=== PATIENT | female | born 1965 | race African-American/Black ===

== ENCOUNTER 2018-10-02 19:39 | Emergency (ER) | payer OTHER ==
[2018-10-02] MEDS ORDERED: IBUPROFEN 600 MG TABLET PO ONE (23:50)
[2018-10-03 00:15] LABS: APPEARANCE,URINE CLEAR; BILIRUBIN,URINE NEGATIVE (NEGATIVE); COLOR,URINE YELLOW; GLUCOSE, URINE NEGATIVE (NEGATIVE); KETONES,URINE NEGATIVE (NEGATIVE); LEUKOCYTE ESTERASE,URINE NEGATIVE (NEGATIVE); NITRITE,URINE NEGATIVE (NEGATIVE); PROTEIN,URINE NEGATIVE (NEGATIVE); URINE SPECIFIC GRAVITY 1.018; UROBILINOGEN,URINE NEGATIVE mg/dL (<2.0)
--- NOTE | 2018-10-03 00:24 | RADIOLOGY REPORT (SQ) ---
XR LUMBAR SPINE 3 VIEWS HISTORY: Lower back pain. COMPARISON: None. FINDINGS: 5 non-rib bearing lumbar-type vertebra are present. Normal alignment without static listhesis. Vertebral body heights and disc spaces are preserved. SI joints are intact. IMPRESSION: No acute fracture or listhesis.
--- NOTE | 2018-10-03 00:34 | ER Document Report ---
ED General - General Chief Complaint: Back Pain Stated Complaint: LOWER BACK PAINS, BOTH SIDES Time Seen by Provider: 10/02/18 23:28 Mode of Arrival: Ambulatory Information source: Patient TRAVEL OUTSIDE OF THE [place] IN LAST 30 DAYS: No - HPI Notes: Patient is a 53-year-old black female presents the emergency department with report of a 3-day history of lower back pain equal on both sides, worse with lifting and movement. The patient reports some associated muscle spasms. She denies any numbness, paresthesia, incontinence, dysuria, abdominal pain. No constipation or diarrhea. No cough or congestion or chest pain. The patient performs heavy lifting at work, but has trouble thinking of any one single episode where she may have injured her back. - Related Data Allergies/Adverse Reactions: Sulfa (Sulfonamide Antibiotics) Allergy (Verified 04/26/13 03:25) Past Medical History - General Information source: Patient - Social History Smoking Status: Current Every Day Smoker Chew tobacco use (# tins/day): No Frequency of alcohol use: Rare Drug Abuse: None Family History: CAD, Hyperlipidemia, Hypertension, Malignancy Patient has suicidal ideation: No Patient has homicidal ideation: No Renal/ Medical History: Reports: Hx Ovarian Cysts, Hx Pelvic Inflammatory Disease. Denies: Hx Peritoneal Dialysis Past Surgical History: Reports: Hx Section - Immunizations Immunizations up to date: Yes Review of Systems - Review of Systems -: Yes All other systems reviewed and negative Physical Exam - Vital signs Vitals: Temp Pulse Resp BP Pulse Ox 98.3 F 81 16 133/85 H 100 10/02/18 19:40 10/02/18 19:40 10/02/18 19:40 10/02/18 19:40 10/02/18 19:40 - Notes Notes: PHYSICAL EXAMINATION: GENERAL: Well-appearing, well-nourished and in no acute distress. HEAD: Atraumatic, normocephalic. EYES: Pupils equal round and reactive to light, extraocular movements intact, conjunctiva are normal. ENT: Nares patent, oropharynx clear without exudates. Moist mucous membranes. NECK: Normal range of motion, supple without lymphadenopathy LUNGS: Breath sounds clear to auscultation bilaterally and equal. No wheezes rales or rhonchi. HEART: Regular rate and rhythm without murmurs ABDOMEN: Soft, nontender, nondistended abdomen. No guarding, no rebound. No masses appreciated. Female : deferred Musculoskeletal: Normal range of motion, no pitting or edema. No cyanosis. Patient exhibits pain to the lower midline lumbar region and paraspinally adjacent to L3/4/5 and S1. No bony deformity or crepitance or erythema. The patient has pain in through the paraspinal muscle region below the CVA area. NEUROLOGICAL: Cranial nerves grossly intact. Normal speech, normal gait. Normal sensory, motor exams. No saddle anesthesia. Normal reflexes. PSYCH: Normal mood, normal affect. SKIN: Warm, Dry, normal turgor, no rashes or lesions noted. Course - Re-evaluation Re-evalutation: 10/03/18 00:34 Patient was given ibuprofen for pain. 10/03/18 01:56 Patient had some relief of her discomfort after ibuprofen. The patient had a negative x-ray and a negative urinalysis. No evidence for UTI, kidney stone, cauda equina syndrome, herniated disc pathology. Patient was told that if pain in the back persists, she may need a MRI study for further evaluation. - Vital Signs Vital signs: Temp Pulse Resp BP Pulse Ox 98.3 F 81 16 133/85 H 100 10/02/18 19:40 10/02/18 19:40 10/02/18 19:40 10/02/18 19:40 10/02/18 19:40 Discharge - Discharge Clinical Impression: Back strain Qualifiers: Encounter type: initial encounter Qualified Code(s): S39.012A - Strain of muscle, fascia and tendon of lower back, initial encounter Condition: Stable Disposition: HOME, SELF-CARE Instructions: Low Back Pain ([facility]) Additional Instructions: Massage therapy. If back pain continues, see a chiropractor. If you get numbness or paresthesia or weakness, then you may need a MRI of the back. Prescriptions: Methocarbamol [Robaxin] 500 mg PO Q6HP PRN #20 tablet PRN Reason: Ibuprofen 600 mg PO Q8HP PRN #30 tablet PRN Reason: Forms: Return to Work Referrals: KELLEY OLVERA MD [Primary Care Provider] - Follow up as needed
[2018-10-03 02:00] VITALS: BP 118/66
== END 2018-10-03 02:17 | disposition home or self-care (01) ==
LOC: ER 19:39
DX: S39.012A Strain of muscle, fascia and tendon of lower back, initial encounter (principal); M62.830 Muscle spasm of back; X58.XXXA Exposure to other specified factors, initial encounter; F17.200 Nicotine dependence, unspecified, uncomplicated
CPT/HCPCS: 72100; 81001; 99284